=== PATIENT | female | born 1955 | race Two or more races ===

== ENCOUNTER 2018-07-04 18:08 | Observation (INO) | payer OTHER, MEDICARE ==
[~2018-07-04] VITALS: Ht 124.5 cm; Wt 65.5 kg
[~2018-07-04 18:08] MED LIST: ALPRAZOLAM0.5 MG PO; AMBIEN10 MG; AMITRIPTYLINE H50 MG; FENTANYL1 EAC4 TOP; HYDROCODON-ACE1 EAC6 PO; PAROXETINE HCL20 MG PO; ROBAXIN-750750 MG PO
--- OUTSIDE RECORDS SUMMARY | 2018-07-04 18:13 | XMS REPORT ---
Author Author Admin, [place] Organization [facility] Address Unknown Phone Unavailable Allergies, Adverse Reactions, Alerts Allergy Name Reaction Description Start Date Severity Status Provider Allergies Unknown Conditions or Problems Problem Name Problem Code Onset Date Status Entry Date Provider Comment Standard Description Annotate ANXIETY DISORDER, UNSPECIFIED Active Darby Holley STENCIL TYPIST Anxiety state, unspecified DEPRESSIVE DISORDER, UNSPECIFIED Active Sangeeta Holley STENCIL TYPIST Medication List Medication Instructions Start Date Stop Date Generic Name NDC Status Provider Patient Instruction Drug Treatment Unknown - unknown Procedures Code Procedure Name Date Entry Date Standard Description CPT-02287 Psychotherapy 45 (38-52*) min - 07566 (with patient and/or family member) 11:55:49 CDT CPT-43656 Psychotherapy 45 (38-52*) min - 16374 (with patient and/or family member) 07:54:10 CDT CPT-10732 Diagnostic evaluation (no medical) - 47226 08:51:21 CDT
[2018-07-04] MEDS ORDERED: DEXTROSE 5%/0.45% SOD CHL 1,000 ML IV SCH (18:30)
[2018-07-04] MEDS ORDERED: ACETAMINOPHEN 325 MG TAB PO PRN (18:30)
[2018-07-04 18:35] VITALS: BP 135/65
[2018-07-04 19:55] VITALS: BP 135/65
[2018-07-04] MEDS: ONDANSETRON HCL INJ 2 MG/ML VIAL IV PRN (19:55)
[2018-07-04] MEDS: MORPHINE SULFATE INJ 4 MG/ML INJ IV PRN (19:55)
[2018-07-04 20:00] VITALS: BP 143/75
[2018-07-04] MEDS ORDERED: NORCO 10-325 T1 EACH PO (20:41)
[2018-07-04] MEDS ORDERED: RESTASIS1 EACH OP (20:45)
[2018-07-04] MEDS ORDERED: NAPROXEN250 MG PO (20:45)
[2018-07-04] MEDS ORDERED: VITAMIN D35000 UNI1 PO (20:45)
[2018-07-04] MEDS: FAMOTIDINE 20 MG/2 ML VIAL IV SCH (21:53)
[2018-07-05] VITALS: BP 140/74
[2018-07-05] MEDS: MORPHINE SULFATE INJ 4 MG/ML INJ IV PRN ×2 (01:25→07:41)
[2018-07-05] MEDS: ONDANSETRON HCL INJ 2 MG/ML VIAL IV PRN ×2 (01:25→07:41)
[2018-07-05] MEDS ORDERED: PIPER-TAZ 3.375 GM 50 ML IV SCH ×3 (02:30→09:00)
[2018-07-05 04:00] VITALS: BP 158/72
--- NOTE | 2018-07-05 06:15 | Diagnostic Imaging Report ---
EXAM: US GALLBLADDER DATE: 07/04/2018 12:00 AM INDICATION: Cholecystitis, COMPARISON: None TECHNIQUE: Transverse and longitudinal triplett scale and color doppler sonographic images of the upper abdomen were obtained. Technical issues resulted in a delay in interpretation. FINDINGS: LIVER 14.8 cm in the right midclavicular line. Normal echogenicity, normal contour, no masses. GALLBLADDER Abnormal appearing slightly contracted gallbladder with irregular wall. Multiple gallstones and sludge with marked edematous wall thickening and/or pericholecystic fluid (1.5 cm in thickness). Negative sonographic Siddiqui's sign. BILE DUCTS No intrahepatic biliary dilation. Common bile duct measures 0.8 cm, borderline dilated. PANCREAS: Poorly visualized due to overlying bowel gas with visualized portions normal. RIGHT KIDNEY: 9.6 cm Echogenicity: Normal Collecting System: No hydronephrosis Stones: None Cyst/Mass: None VESSELS: Aorta: Visualized portions are within normal size limits Inferior Vena Cava: Visualized portions are normal Main Portal Vein: 0.7 cm, normal size with hepatopetal flow. FREE FLUID: None IMPRESSION: 1. Cholelithiasis/sludge with sonographic findings of acute cholecystitis. 2. Borderline dilation of the common bile duct. If there is clinical concern for distal obstructing stone, recommend MRI/MRCP. Signed by: Dr Janet Singer MD on 07/05/2018 6:12 AM
[2018-07-05 06:24] LABS: BASOPHILS % 0.6 % (0.0-1.0); EOSINOPHILS # (AUTO) 0.1 (0.0-0.4); EOSINOPHILS % 1.3 % (0.0-6.0); HEMATOCRIT 36.7 % (34.2-44.1); HEMOGLOBIN 11.7 g/dL (12.0-16.0); LYMPHOCYTES # (AUTO) 1.4 (1.0-3.2); LYMPHOCYTES % 20.7 % (18.0-39.1); MEAN CORPUSCULAR HEMOGLOBIN 29.3 pg (28-32); MEAN CORPUSCULAR HGB CONC 31.9 g/dL (31-35); MEAN CORPUSCULAR VOLUME 91.8 fL (81-99); MONOCYTES # (AUTO) 0.8 (0.2-0.8); MONOCYTES % 11.4 % (4.4-11.3); NEUTROPHILS # (AUTO) 4.6 (2.1-6.9); NEUTROPHILS % 65.7 % (38.7-80.0); PLATELET COUNT 178 x10e3/uL (140-360); RED CELL DISTRIBUTION WIDTH 12.4 % (11.7-14.4)
[2018-07-05 06:49] LABS: ANION GAP 11.7 mmol/L (8-16); CALCIUM 8.6 mg/dL (8.4-10.2); CREATININE, SERUM 1.06 mg/dL (0.57-1.11); POTASSIUM 3.7 mmol/L (3.5-5.1)
[2018-07-05] MEDS ORDERED: HYDRALAZINE HCL 20 MG/ML VIAL IV PRN (07:30)
--- NOTE | 2018-07-05 07:46 | Consultation ---
DATE OF CONSULTATION: July 05, 2018 REFERRING PHYSICIAN: Dr. Zayas. HISTORY OF PRESENT ILLNESS: The patient is a 62-year-old female who presents with complaints of right upper quadrant abdominal pain, says she has had it for 3 days. She has not had similar pains in the past. Evaluation has revealed gallstones with sludge in the gallbladder and thickened gallbladder wall suggestive of acute cholecystitis. The patient has no symptoms of jaundice. PAST MEDICAL HISTORY: Significant for chronic pain secondary to multiple back surgeries and back problems. She is partially disabled because of her back issues. ALLERGIES: SHE HAS NO KNOWN ALLERGIES. MEDICATIONS: Her medications at home were vitamin D3, Restasis, fentanyl patch, hydrocodone, and naproxen. PAST SURGICAL HISTORY: The only previous surgeries were her back surgeries. FAMILY HISTORY: Noncontributory. SOCIAL HISTORY: The patient does not smoke cigarettes or drink alcohol. REVIEW OF SYSTEMS: As stated above. She has not had any fever. PHYSICAL EXAMINATION GENERAL: The patient is awake and alert, in no distress. VITAL SIGNS: Normal. She is afebrile. HEENT: No scleral icterus. NECK: No masses. LUNGS: Equal breath sounds, clear bilaterally. CARDIAC: Regular rate and rhythm with no murmur. ABDOMEN: Tender in the right upper quadrant. Signs of peritonitis localized in the right upper quadrant. There is no mass. There is no organomegaly. EXTREMITIES: No edema. NEUROLOGIC: Grossly intact. LABORATORY TEST: White blood cell count is normal at 6.9, hemoglobin 11, and hematocrit 36. Chemistries are essentially normal. ASSESSMENT AND RECOMMENDATIONS: A 62-year-old female with acute cholecystitis, cholelithiasis. She will likely benefit from cholecystectomy, which we will plan to schedule for today. Procedure was explained to the patient including the risks, benefits, and alternatives. She understands the procedure. She has had the opportunity to ask questions. She is aware of the possible need for open surgery. Thank you for asking me to see Ms. Quoc Casas. Job#: [id number] EARLINE
[2018-07-05 08:44] VITALS: BP 141/67
[2018-07-05] MEDS: PIPER-TAZ 3.375 GM 50 ML IV SCH ×3 (09:20→21:28)
[2018-07-05 09:30] VITALS: BP 141/67
[2018-07-05] MEDS: FAMOTIDINE 20 MG/2 ML VIAL IV SCH ×2 (09:30→21:28)
[2018-07-05] MEDS ORDERED: BUPIVACAINE HCL 0.5% INJ 30 ML VIAL INJ ONE (10:38)
[2018-07-05] MEDS ORDERED: FENTANYL CITRATE/PF 100MCG/2 ML INJ ONE (10:49)
[2018-07-05] MEDS ORDERED: MORPHINE SULFATE 5 MG/ML VIAL IV PRN (12:30)
[2018-07-05] MEDS ORDERED: HYDROCODONE/APAP 7.5MG-325MG 1 EA TAB PO PRN (12:30)
[2018-07-05] MEDS ORDERED: ONDANSETRON HCL INJ 2 MG/ML VIAL IV PRN (12:30)
[2018-07-05] MEDS ORDERED: ACETAMINOPHEN 1000 MG/100 ML 100 ML IV ONE (12:39)
[2018-07-05] MEDS ORDERED: HYDROMORPHONE 2MG/ML 2 MG/ML ML ONE (12:40)
[2018-07-05] MEDS ORDERED: MORPHINE SULFATE INJ 4 MG/ML INJ IV PRN (13:15)
[2018-07-05] MEDS: SODIUM CHLORIDE 0.9% 1000ML 1,000 ML IV SCH ×2 (14:00→22:16)
[2018-07-05 16:08] VITALS: BP 154/83
[2018-07-05] MEDS ORDERED: DEXAMETHASONE SOD PHOS INJ 4 MG/ML VIAL ONE (17:45)
[2018-07-05] MEDS ORDERED: PROPOFOL IV EMULSION 10 MG/ML 20 ML VIAL ONE (17:45)
[2018-07-05] MEDS ORDERED: ONDANSETRON HCL INJ 2 MG/ML VIAL ONE (17:45)
[2018-07-05] MEDS ORDERED: KETOROLAC TROMETHAMINE 30 MG/ML VIAL ONE (17:45)
[2018-07-05] MEDS ORDERED: DESFLURANE 240 ML BTL INH ONE (17:45)
[2018-07-05] MEDS ORDERED: SUCCINYLCHOLINE 200 MG/10 ML SYR ONE (17:45)
[2018-07-05 20:00] VITALS: BP_SYST 108; BP_SYST 121; BP_DIAS 57; BP_DIAS 59
--- NOTE | 2018-07-05 20:10 | Operative Report ---
DATE OF PROCEDURE: July 05, 2018 PREOPERATIVE DIAGNOSES: Acute cholecystitis, cholelithiasis. POSTOPERATIVE DIAGNOSES: Acute cholecystitis, cholelithiasis. PROCEDURES PERFORMED: Diagnostic laparoscopy. laparoscopic cholecystectomy. EMERGENCY REGISTRAR: None. ANESTHESIA: General. INDICATIONS AND FINDINGS: Patient is a 62-year-old female with medical complaints of severe epigastric right upper quadrant abdominal pain. Workup revealed findings suggestive of acute cholecystitis with cholelithiasis. At surgery, patient's gallbladder was very distended and tense and edematous containing multiple stones. Cystic duct was about 3 mm in diameter. Common bile duct was about 5 mm in diameter. Liver, stomach, and lower abdomen all appeared normal. TECHNIQUE: After adequate general endotracheal anesthesia with patient in supine position, the abdomen was prepped and draped in sterile fashion with Cornell solution. Skin in the umbilicus was infiltrated with 0.5% Marcaine. Incision was made in the umbilicus. Abdominal wall was elevated and Veress needle was introduced. Pneumoperitoneum was then created. A 10 mm trocar and cannula was then passed through the umbilical wound. Laparoscopic camera was introduced. Initial laparoscopy revealed gallbladder very distended and tense and edematous. Liver, stomach, and lower abdomen all appeared normal. A 10 mm trocar and cannula was placed in the epigastrium and two 5 mm trocars and cannulas were placed in right upper quadrant. These were placed under direct vision. Gallbladder was tense. It was decompressed with a needle, contained some thick bile. Fundus was then grasped and retracted superiorly. Adhesions over the fundus of the gallbladder and also to the edge of the liver were lysed using electrocautery. Neck of the gallbladder was grasped and retracted laterally. There was a large stone impacted in the gallbladder neck. This was pushed back into the gallbladder fundus. Peritoneum over the neck of the gallbladder was incised. The gallbladder cystic duct junction was dissected free. Cystic artery was also dissected free. The neck of the gallbladder completely dissected free. Cystic artery was divided between hemoclips close to the gallbladder. Cystic duct also divided between hemoclips with 3 clips being left on the common bile duct side. Posterior branch of the cystic artery was also divided between hemoclips close to the gallbladder. The gallbladder was dissected free from the liver using scissors and electrocautery. Once it was entirely free, it was placed into an Endopouch and brought out through the epigastric cannula, contained multiple large stones. Gallbladder bed was inspected for hemostasis. There was one point, which was bleeding, which was controlled with electrocautery. Hemostasis was achieved. It was irrigated with saline. All fluid aspirated and inspected for hemostasis, which was seen to be adequate. Instruments and cannulas were then removed. Pneumoperitoneum was evacuated. Wounds were then closed, fascia in the umbilical and epigastric wound closed with 0 Vicryl, skin to all wounds closed with jorge luis. Sterile dressings applied to each wound. The patient tolerated procedure well. Estimated blood loss was 40 mL. There were no complications. All counts were correct. Patient was taken to the recovery room in satisfactory condition. Job#: [id number] RIANNA cc:DR. LAWRENCE NOGUERA
[2018-07-05] MEDS ORDERED: MELATONIN 5 MG TABLET PO PRN (20:45)
[2018-07-06] VITALS: BP 108/59
[2018-07-06] MEDS: PIPER-TAZ 3.375 GM 50 ML IV SCH (03:16)
[2018-07-06 04:00] VITALS: BP 123/57
[2018-07-06 05:34] LABS: BASOPHILS % 0.1 % (0.0-1.0); HEMATOCRIT 32.4 % (34.2-44.1); HEMOGLOBIN 10.6 g/dL (12.0-16.0); LYMPHOCYTES # (AUTO) 1.2 (1.0-3.2); LYMPHOCYTES % 13.2 % (18.0-39.1); MEAN CORPUSCULAR HEMOGLOBIN 29.7 pg (28-32); MEAN CORPUSCULAR HGB CONC 32.7 g/dL (31-35); MEAN CORPUSCULAR VOLUME 90.8 fL (81-99); MONOCYTES # (AUTO) 0.7 (0.2-0.8); NEUTROPHILS # (AUTO) 7.1 (2.1-6.9); NEUTROPHILS % 78.3 % (38.7-80.0); PLATELET COUNT 203 x10e3/uL (140-360); RED BLOOD COUNT 3.57 x10e6/uL (3.6-5.1); RED CELL DISTRIBUTION WIDTH 12.6 % (11.7-14.4)
[2018-07-06 05:53] LABS: ALBUMIN 2.8 g/dL (3.5-5.0); ALBUMIN/GLOBULIN RATIO 0.9 (0.8-2.0); ANION GAP 12.7 mmol/L (8-16); CALCIUM 8.7 mg/dL (8.4-10.2); CREATININE, SERUM 1.22 mg/dL (0.57-1.11); POTASSIUM 3.7 mmol/L (3.5-5.1)
[2018-07-06 06:07] LABS: ALBUMIN 2.8 g/dL (3.5-5.0); ANION GAP 12.7 mmol/L (8-16); BILIRUBIN,DIRECT 0.4 mg/dL (0.0-0.5); CALCIUM 8.6 mg/dL (8.4-10.2); CREATININE, SERUM 1.19 mg/dL (0.57-1.11); MAGNESIUM 1.5 MG/DL (1.3-2.1); POTASSIUM 3.7 mmol/L (3.5-5.1)
[2018-07-06 08:15] VITALS: BP 132/68
[2018-07-06] MEDS: FAMOTIDINE 20 MG/2 ML VIAL IV SCH (08:15)
[2018-07-06] MEDS: SODIUM CHLORIDE 0.9% 1000ML 1,000 ML IV SCH (08:16)
[2018-07-06 08:17] VITALS: BP 132/68
[2018-07-06] MEDS ORDERED: PIPER-TAZ 3.375 GM 50 ML IV SCH (09:00)
[2018-07-06 12:55] VITALS: BP 108/55
--- NOTE | 2018-07-06 13:47 | Discharge Summary ---
ADMISSION DIAGNOSES 1. Cholelithiasis with cholecystitis. 2. Chronic pain. 3. Normocytic anemia. 4. Dehydration. 5. Transaminitis. 6. Hypertension. DISCHARGE DIAGNOSES 1. Cholelithiasis with cholecystitis. 2. Chronic pain. 3. Normocytic anemia. 4. Dehydration. 5. Transaminitis. 6. Hypertension. 7. Status post cholecystectomy. HISTORY: Patient has a history of chronic left arm and back pain. SURGICAL HISTORY: Patient has had multiple back surgeries, C-sections times 3, hysterectomy, and LASIK on both of her eyes. FAMILY HISTORY: Patient's father and sister have diabetes. Patient's mother and brother have cancer. Patient's mother and father had a stroke. SOCIAL HISTORY: Patient denies tobacco, alcohol and illicit drug use. HOSPITAL COURSE: A 62-year-old female complains of epigastric abdominal pain and nausea that began 3 days ago. The pain has begun to radiate to the left upper quadrant. She complains of associated chills, but denies fever, vomiting and diarrhea. Nothing improves the pain. The pain is worsened by eating. On admission, the patient was given Kaela. Surgery was consulted. CT of the abdomen showed cholelithiasis/sludge with sonographic evidence of acute cholecystitis, borderline dilation of the common bile duct. Patient was kept n.p.o. and started on IV fluids. Patient's AST was 71 on admission. All other LFTs are normal. Patient's GFR on admission was 53. Other renal labs were within normal limits. Patient had a laparoscopic cholecystectomy on July 05, 2018. After the surgery, her AST went up to 87. ALT went up to 68. Creatinine went up to 1.22 and GFR went down to 45 despite IV fluids. Patient will discharge home as she is already tolerating a regular diet and pain is well controlled. Surgery has cleared the patient for discharge. Patient will follow up with primary care in 1 week to retest chemistries. Patient understand discharge instructions, and agrees to plan. DICTATED BY BIBIANA VELOZ NP LAWRENCE NOGUERA MD Job#: [id number] [place]
== END 2018-07-06 12:41 | disposition home or self-care (01) ==
LOC: INTOOBSV 18:08 → MED/SURG 18:08
PROVIDERS: ADMIT Internal Medicine; ATTEND Internal Medicine
DX: K80.00 Calculus of gallbladder with acute cholecystitis without obstruction (principal); K82.A1 Gangrene of gallbladder in cholecystitis; K82.8 Other specified diseases of gallbladder; G89.29 Other chronic pain; D64.9 Anemia, unspecified; E86.0 Dehydration; R74.0 Nonspecific elevation of levels of transaminase and lactic acid dehydrogenase [LDH]; I10 Essential (primary) hypertension; Z83.3 Family history of diabetes mellitus; Z82.3 Family history of stroke; Z80.9 Family history of malignant neoplasm, unspecified
CPT/HCPCS: 36415 ×2; 47562; 76705; 80048; 80053 ×2; 80076; 83735; 85025 ×2; 88304; 96367; 96374; 96376; G0378 ×3; J0131; J1170; J2270 ×3; J2405 ×2; J2543 ×2; J7030; J1100; J1885